=== PATIENT | male | born 1980 ===

== ENCOUNTER 2019-02-22 18:30 | Emergency (ER) | payer OTHER ==
[~2019-02-22] VITALS: Ht 167.6 cm; Wt 78.0 kg
[2019-02-22] MEDS ORDERED: PRILOSEC OTC20 MG (19:01)
[2019-02-22] MEDS ORDERED: PEPTO-BISM262 MG/15 (19:01)
== END 2019-02-22 21:54 | disposition home or self-care (01) ==
LOC: ER 18:30
DX: N20.1 Calculus of ureter (principal)